=== PATIENT | female | born 1960 | race Caucasian/White ===

== ENCOUNTER 2018-11-01 01:02 | Outpatient (CLI) | payer OTHER, SELFPAY ==
--- NOTE | 2018-11-01 10:00 | DI.MAMMO_ITS ---
SYMPTOM/DIAGNOSIS: SCREENING Z12.31 MAMMOGRAMS: Mammograms were interpreted according to the usual protocol including computer analysis with CAD system, tomosynthesis and C view imaging. Comparison with prior examinations. No suspicious masses or microcalcifications are seen. There is no definite evidence of malignancy. Breast density category C. IMPRESSION: Category 1, negative mammogram. Routine screening is recommended. Breast density category C. MQSA ASSESSMENT OF FINDINGS: Negative. Category 1. Patient will receive a letter notifying them of these results. Bi-RADS category C. The breasts are heterogeneously dense, which may obscure small masses.
== END 2018-11-01 01:22 ==
PROVIDERS: PCP Registered Nurse; Visit Provider Nurse Practitioner Family
DX: Z12.31 Encounter for screening mammogram for malignant neoplasm of breast (principal)
CPT/HCPCS: 77063; 77067

== ENCOUNTER 2019-11-15 04:10 | Outpatient (CLI) | payer OTHER, SELFPAY ==
--- NOTE | 2019-11-15 06:45 | DI.US_ITS ---
EXAM: US PELVIS TRANSVAGINAL CLINICAL HISTORY: Fibroid uterus and still bleeding, D25.9. TECHNIQUE: Transabdominal and transvaginal pelvic ultrasound was performed using standard protocol. COMPARISON: US PELVIS TRANSVAG from 06/02/2015 FINDINGS: KIDNEYS: Kidneys are symmetric in size. No evidence of renal calculi. No evidence of hydronephrosis. No renal mass or cyst identified. UTERUS: Position: Anteverted. Size: 11.2 long by 6.3 AP by 9.4 transverse cm Endometrium: 0.4 cm. Normal for patient's menstrual status. Myometrium: Numerous enlarged masses within the uterus consistent with fibroids. The largest measure s 4.2 x 4.4 x 5.7 cm. Cervix: Unremarkable. OVARIES: Right: 2.6 x 1 x 1.2 cm Cyst or mass: None. Left: 2.2 x 1.3 x 0.9 cm Cyst or mass: None. DOPPLER: Color: Symmetric and uniform flow to both ovaries. No hyperemia. Duplex: Normal ovarian arterial waveforms visualized. CUL-DE-SAC: Free fluid: None. Other: None. IMPRESSION: 1. Normal sonographic appearance of the kidneys. 2. Enlarged fibroid uterus. 3. Unremarkable bilateral ovaries. DATA REPOSITORY:
== END 2019-11-15 04:30 ==
PROVIDERS: PCP Registered Nurse; Visit Provider Nurse Practitioner Family
DX: D25.9 Leiomyoma of uterus, unspecified (principal)
CPT/HCPCS: 76830; 76856

== ENCOUNTER 2019-11-19 14:07 | Outpatient (REF) | payer OTHER, SELFPAY ==
--- NOTE | 2019-11-19 12:00 | PAPFT_PTH ---
PATIENT: Elva Jacobs LOC: [facility] U#:[id number] AGE/SX: 58/F ROOM: RE11/19/[address]: Abi Russo DO : 1960 BED: DIS: 11/19/2019 SPEC #: [id number] RECD: 11/19/19 17:40 STATUS: DANA REQ #: [id number] LATIA: 11/19/19 12:[address]: Abi Russo DEPT: [facility] Cytology RECD BY: Liberty Dominique ENTERED: 11/19/19 17:41 SP TYPE: PAPFT OTHR DR: Jia Pressley Tissues: 1 - CX/ENDOCX FOR PAP SMEARS Procedures: PAP THIN PREP/UVM Screening Comments: [id number] (UNSATISFACTORY FOR EVALUATION)
--- NOTE | 2019-11-19 12:00 | ENDOMET_PTH ---
PATIENT: Elva Jacobs LOC: [facility] U#:[id number] AGE/SX: 58/F ROOM: RE11/19/[address]: Abi Russo DO : 1960 BED: DIS: 11/19/2019 SPEC #: [id number] RECD: 11/19/19 17:34 STATUS: DANA REQ #: [id number] LATIA: 11/19/19 12:[address]: Abi Russo DEPT: Surgical Specimen RECD BY: Liberty Dominique ENTERED: 11/19/19 17:34 SP TYPE: Endomet OTHR DR: Jia Pressley Tissues: 1 - ENDOMETRIUM BX/BERTHA Procedures: GROSS AND MICRO LEVEL 4 Comments: [id number]
== END 2019-11-19 14:27 ==
LOC: LBN 14:07
PROVIDERS: PCP Registered Nurse; Visit Provider Obstetrics & Gynecology
DX: Z12.4 Encounter for screening for malignant neoplasm of cervix (principal); R87.615 Unsatisfactory cytologic smear of cervix
CPT/HCPCS: 88142; 88305

== ENCOUNTER 2019-11-26 03:30 | Outpatient (CLI) | payer OTHER, SELFPAY ==
[2019-11-27 18:30] LABS: FSH 42.3 mIU/mL (See Note)
== END 2019-11-26 03:50 ==
PROVIDERS: PCP Registered Nurse; Visit Provider Obstetrics & Gynecology
DX: N95.0 Postmenopausal bleeding (principal); D25.9 Leiomyoma of uterus, unspecified
CPT/HCPCS: 36415; 83001

== ENCOUNTER 2019-12-10 01:32 | Outpatient (CLI) | payer OTHER, SELFPAY ==
--- NOTE | 2019-12-10 08:22 | DI.MAMMO_ITS ---
EXAM: MAMMO SCREENING CLINICAL HISTORY: screening,Z12.39 TECHNIQUE: Mammograms were interpreted according to the usual protocol including computer analysis w [employer] CAD system, tomosynthesis and C-view imaging. COMPARISON: 2010 through 2018 FINDINGS: The breasts are composed of heterogeneously dense fibroglandular densities, Breast Density category C . No suspicious masses or suspicious microcalcifications are seen. Stable benign-appearing calcificati ons are seen in the posterior left breast. No skin thickening or abnormal axillary lymph nodes are seen. There has been no significant change from prior exams. IMPRESSION: BI-RADS Category 2 - Benign Findings Yearly screening mammography is recommended. Breast Density - Category C - Heterogeneously dense Breast density category C, heterogeneously Dense. The mammogram demonstrates the patient's breast tissue is dense. Dense breast tissue is very common a nd is not abnormal but dense breast tissue can make it harder to find cancer on a mammogram. Also, de nse breast tissue may increase breast cancer risk. This information about the result of the mammogram report was provided to the patient to raise their awareness. Use this report when you speak with the patient about their risks for breast cancer, which includes their family history. At that time, you may recommend additional screening tests (Ultrasound or MRI) as they might be useful based on their r isk. A negative radiographic report should not delay biopsy if a dominant or clinically suspicious mass is present. Up to ten percent of cancers are not identified on mammography. A negative report may reinforce clinical impression. Adenosis and dense breasts may obscure an underlying neoplasm. False positive reports average 6 to 10%.
== END 2019-12-10 01:52 ==
PROVIDERS: PCP Registered Nurse; Visit Provider Nurse Practitioner Family
DX: Z12.31 Encounter for screening mammogram for malignant neoplasm of breast (principal); R92.2 Inconclusive mammogram
CPT/HCPCS: 77063; 77067

== ENCOUNTER 2019-12-27 09:18 | Outpatient (CLI) | payer OTHER, SELFPAY ==
[2019-12-28 18:07] LABS: COVID-19 RT-PCR Result NEGATIVE (Negative)
== END 2019-12-27 09:38 ==
PROVIDERS: PCP Registered Nurse; Visit Provider Obstetrics & Gynecology
DX: Z11.59 Encounter for screening for other viral diseases (principal); Z01.818 Encounter for other preprocedural examination
CPT/HCPCS: U0003

== ENCOUNTER 2019-12-27 13:09 | Outpatient (CLI) | payer OTHER, SELFPAY ==
[2019-12-27 13:29] LABS: HCT 42.1 % (36.0-46.0); HGB 14.3 g/dL (11.2-15.7); MCH 29.5 pg (27.0-33.0); MCV 86.8 fL (80-95); MPV 9.5 fL (8.0-11.0); Platelet Count 252 10^3/uL (130-400); RBC 4.85 10^6/uL (3.93-5.22); RDW 12.6 % (11.7-14.6); RDW-SD 39.7 fL; WBC 4.68 10^3/uL (4.4-10.8)
== END 2019-12-27 13:29 ==
PROVIDERS: PCP Registered Nurse; Visit Provider Obstetrics & Gynecology
DX: D25.9 Leiomyoma of uterus, unspecified (principal); E03.9 Hypothyroidism, unspecified; Z01.818 Encounter for other preprocedural examination; Z01.812 Encounter for preprocedural laboratory examination
CPT/HCPCS: 36415; 85027; 86850; 86900; 86901

== ENCOUNTER 2020-01-01 07:26 | Day surgery (SDC) | payer OTHER, SELFPAY ==
--- NOTE | 2019-12-30 15:54 | NUR.NOTE ---
Sent message to WW regarding patient's instructions on Eliquis, discussed with Elva Mills to speak to MD for further instructions. WW to contact patient with further instructions. Nursing Note:
[2020-01-01 07:45] VITALS: BP 155/93; PULSE 84; RESP 16; TEMP 36.2; O2SAT 100
[2020-01-01] MEDS: Lactated Ringers 1,000 ML 125 ML IV ×2 (08:36→11:06)
[2020-01-01] MEDS: Sodium Citrate 30 ML CUP PO (08:37)
--- NOTE | 2020-01-01 10:55 | PAPFT_PTH ---
PATIENT: Elva Jacobs LOC: [facility] U#:[id number] AGE/SX: 59/F ROOM: RE01/01/[address]: Abi Russo DO : 1960 BED: DIS: 01/01/2020 SPEC #: [id number] RECD: 01/01/20 17:57 STATUS: DANA REQ #: [id number] LATIA: 01/01/20 10:[address]: Abi Russo DEPT: [facility] Cytology RECD BY: Liberty Dominique ENTERED: 01/01/20 17:57 SP TYPE: PAPFT OTHR DR: Jia Pressley Tissues: 1 - CX/ENDOCX FOR PAP SMEARS Procedures: PAP THIN PREP/UVM Screening Comments: [id number] (UNSATISFACTORY FOR EVALUATION)
--- NOTE | 2020-01-01 11:00 | ENDO_PTH ---
PATIENT: Elva Jacobs LOC: [facility] U#:[id number] AGE/SX: 59/F ROOM: RE01/01/[address]: Abi Russo DO : 1960 BED: DIS: 01/01/2020 SPEC #: [id number] RECD: 01/01/20 12:52 STATUS: DANA REQ #: [id number] LATIA: 01/01/20 11:[address]: Abi Russo DEPT: Surgical Specimen RECD BY: Liberty Dominique ENTERED: 01/01/20 12:54 SP TYPE: Endo OTHR DR: Jia Pressley Tissues: 1 - ENDOCERVICAL BX/CURRETTE 2 - ENDOMETRIUM BX/CURRETTE Procedures: GROSS AND MICRO LEVEL 4 Comments: [id number]
--- NOTE | 2020-01-01 11:15 | W.PM.OP ---
Date of service: 01/01/20 Time of Service: 11:15 Operative Note Operative Note DATE OF PROCEDURE: 01/01/20 PRE-OP DIAGNOSIS: Uterine fibroids, thickened endometrium POST-OP DIAGNOSIS: same PROCEDURE: Hysteroscopy with dilation and curettage and Pap smear SURGEON: Abi Russo ANESTHESIA: MAC ESTIMATED BLOOD LOSS: 10 PATHOLOGY: other (1. Pap smear 2. Endocervical curetting 3. Endometrial curetting) COMPLICATIONS: None Patient was transported to: same day Patient's condition: stable Indications: Bulky fibroid uterus, thickened endometrium Findings: 16-week size globular uterus with multiple uterine fibroids. Submucosal fibroids present. Hypervascular endometrium. Procedure Description: Patient is a 59-year-old female with a known history of bulky fibroid uterus. She wishes to retain her uterus however, she has had thickened endometrium and bleeding related to this. Endometrial sampling was attempted in the office which was unsatisfactory. The risk benefits and alternatives of hysteroscopy with dilation curettage were explained the patient full informed consent was obtained. Patient does have a known history of an upper extremity blood clot and is fully anticoagulated on Eliquis. Due to the low risk nature of the procedure, Eliquis was continued. Patient would have been taken the operating suite with an IV running where she is placed in the supine position. Anesthesia administered via monitored anesthesia care. She was then placed in the modified dorsal lithotomy position in [facility]. Exam under anesthesia revealed a 14 to 16-week size bulky globular uterus that was irregular in nature. Speculum was inserted into the vagina and cervix inspected. Pap smear was obtained. At this point speculum was removed and patient was then prepped and draped in the usual sterile fashion. Speculum was reinserted into the vaginal vault and the Allis clamp was used to grasp the anterior lip of the cervix. Cervical os was gently dilated the point that a 5 mm hysteroscope could be passed with ease. Hysteroscope was inserted with instillation of normal saline for cavity expansion. The wall of the endometrium appeared somewhat regular however, there was noted to be a large submucosal fibroid in the anterior and superior portion of the fundus of the uterus. This is broad-based attachment at the apex with significant vascularity. Multiple pictures were taken. At this point both endocervical and endometrial curettings were performed in a gentle fashion. At this point procedure was terminated. Allis clamp was removed to the anterior lip of the cervix and speculum was then removed. Patient was returned to dorsal supine position and woke from anesthesia with ease. She is taken to recovery room in stable conditions. Findings: 14 to 16-week size bulky fibroid uterus. Intramural and submucosal fibroids. Hypervascular endometrium. Scant endocervical and endometrial tissue Complications: None apparent EBL: 10 mL
[2020-01-01] MEDS: Acetaminophen 500 MG TAB 1000 MG PO (11:45)
[2020-01-01 11:58] VITALS: BP 108/73; PULSE 53; RESP 16; TEMP 36.4; O2SAT 100
== END 2020-01-01 12:15 | disposition home or self-care (01) ==
PROVIDERS: PCP Registered Nurse; Visit Provider Obstetrics & Gynecology
PROC: 0UDB8ZZ Extraction of Endometrium, Via Natural or Artificial Opening Endoscopic (ICD-10-PCS; CPT 58558; principal; 2020-01-01 09:00)
DX: D25.9 Leiomyoma of uterus, unspecified (principal); E03.9 Hypothyroidism, unspecified; R93.89 Abnormal findings on diagnostic imaging of other specified body structures
CPT/HCPCS: 58558; 88142; 88305; J1100; J2001; J2405

== ENCOUNTER 2021-05-21 15:28 | Outpatient (REF) | payer OTHER, SELFPAY ==
--- NOTE | 2021-05-21 14:00 | PAPFT_PTH ---
PATIENT: Elva Jacobs LOC: [facility] U#:[id number] AGE/SX: 60/F ROOM: RE05/21/[address]: QUYNH Delaney : 1960 BED: DIS: 05/21/2021 SPEC #: [id number] RECD: 05/21/21 17:05 STATUS: DANA REChad #: [id number] LATIA: 05/21/21 14:[address]: Mildred Poole DEPT: [facility] Cytology RECD BY: Liberty Dominique ENTERED: 05/21/21 17:05 SP TYPE: PAPFT OTHR DR: iJa Pressley Tissues: 1 - CX/ENDOCX FOR PAP SMEARS Procedures: PAP THIN PREP/UVM Screening HPV DNA PROBE Comments: [id number]
== END 2021-05-21 15:29 | disposition home or self-care (01) ==
LOC: LBN 15:28
PROVIDERS: PCP Registered Nurse; Visit Provider Nurse Practitioner Family
DX: Z12.4 Encounter for screening for malignant neoplasm of cervix (principal); Z11.51 Encounter for screening for human papillomavirus (HPV)
CPT/HCPCS: 88142; 87624